=== PATIENT | female | born 1970 ===

== ENCOUNTER → 2018-01-10 | Outpatient (CLI) | payer BC ==
[2018-01-13 03:30] LABS: MDA Not Detected (NOTDET); MDEA Not Detected (NOTDET); MDMA Not Detected (NOTDET); Methadone Metab. by GC/MS Not Detected (NOTDET)
== END ==
LOC: LAB SHORT 08:35 → LAB 08:35
PROVIDERS: Psychiatry & Neurology Psychiatry
DX: Z51.81 Encounter for therapeutic drug level monitoring (principal); Z79.899 Other long term (current) drug therapy
CPT/HCPCS: G0480

== ENCOUNTER 2019-12-14 18:32 | Inpatient (IN) | payer BC ==
[~2019-12-14] VITALS: Ht 177.8 cm; Wt 90.7 kg
[2019-12-14 20:12] LABS: BASOPHILS ABSOLUTE AUTO 0.01 K/mm3 (0.00-0.23); BASOPHILS PERCENT AUTO 0 % (0-2); EOSINOPHILS ABSOLUTE AUTO 0.01 K/mm3 (0.00-0.68); EOSINOPHILS PERCENT AUTO 0 % (0-6); Hematocrit 40.5 % (33.0-51.0); IMMATURE GRAN ABSOLUTE AUTO 0.02 K/mm3 (0.00-0.10); IMMATURE GRAN PERCENT AUTO 0 % (0-1); LYMPHOCYTES ABSOLUTE AUTO 0.84 K/mm3 (0.84-5.20); LYMPHOCYTES PERCENT AUTO 10 % (21-46); MONOCYTES ABSOLUTE AUTO 0.71 K/mm3 (0.16-1.47); MONOCYTES PERCENT AUTO 8 % (4-13); Mean Corpuscular HGB 29.3 pg (26.0-34.0); Mean Corpuscular HGB Conc 32.1 g/dL (31.5-36.5); Mean Corpuscular Volume 91 fL (80-100); Mean Platelet Volume 10.3 fL (9.1-12.4); NEUTROPHILS ABSOLUTE AUTO 7.06 K/mm3 (1.96-9.15); NEUTROPHILS PERCENT AUTO 82 % (41-73); Platelet Count 205 K/mm3 (150-400); RDW Coefficient Variation 12.4 % (11.7-14.2); RDW Standard Deviation 41.8 fL (35.1-46.3); Red Blood Cell Count 4.43 M/mm3 (3.80-5.20); White Blood Cell Count 8.65 K/mm3 (4.00-11.30)
[2019-12-14] MEDS ORDERED: CLIN300 PO (20:12)
[2019-12-14 20:30] LABS: Anion Gap 6 mmol/L (6-16); Blood Urea Nitrogen 9 mg/dL (8-24); Bun/Creatinine Ratio 10.5 (12.0-20.0); CO2, Blood 27 mmol/L (21-32); Calcium, Blood 8.9 mg/dL (8.5-10.1); Chloride, Blood 101 mmol/L (98-108); Creatinine, Blood 0.86 mg/dL (0.40-1.00); Glomerular Filtration Rate >60 (60-); Glucose, Blood 100 mg/dL (70-99); Potassium, Blood 3.8 mmol/L (3.5-5.5); Sodium, Blood 134 mmol/L (136-145)
--- NOTE | 2019-12-15 04:25 | NUR ---
SHIFT SUMMARY PT ARRIVED TO ROOM JUST BEFORE MIDNIGHT. PT IS A/O X4 AND IND. IN ROOM. FLUIDS AND ABX GIVEN PER ORDERS. PAIN MANAGED WITH TORADOL PER ORDERS. PT HAS BEEN RESTING QUIETLY. NPO PER ORDERS. ICE PACK PROVIDED FOR COMFORT. ASSISTED WITH ADL'S PRN.
[2019-12-15 05:18] LABS: Hematocrit 40.4 % (33.0-51.0); Mean Corpuscular HGB 28.9 pg (26.0-34.0); Mean Corpuscular HGB Conc 32.2 g/dL (31.5-36.5); Mean Corpuscular Volume 90 fL (80-100); Mean Platelet Volume 11.1 fL (9.1-12.4); Platelet Count 205 K/mm3 (150-400); RDW Coefficient Variation 12.4 % (11.7-14.2); RDW Standard Deviation 41.1 fL (35.1-46.3); White Blood Cell Count 7.24 K/mm3 (4.00-11.30)
[2019-12-15 05:24] LABS: Alanine Aminotransfer (ALT/SGP 23 U/L (12-78); Albumin, Blood 3.6 g/dL (3.4-5.0); Albumin/Globulin Ratio 0.9 (0.8-1.8); Alk Phos 67 U/L (50-136); Anion Gap 8 mmol/L (6-16); Aspartate Aminotrans (AST/SGOT 16 U/L (12-37); Bilirubin, Total 0.5 mg/dL (0.1-1.0); Blood Urea Nitrogen 10 mg/dL (8-24); Bun/Creatinine Ratio 13.1 (12.0-20.0); CO2, Blood 25 mmol/L (21-32); Calcium, Blood 9.3 mg/dL (8.5-10.1); Chloride, Blood 105 mmol/L (98-108); Creatinine, Blood 0.76 mg/dL (0.40-1.00); Globulin, Blood 4.1 g/dL (2.2-4.0); Glomerular Filtration Rate >60 (60-); Glucose, Blood 137 mg/dL (70-99); Potassium, Blood 3.9 mmol/L (3.5-5.5); Sodium, Blood 138 mmol/L (136-145); Total Protein, Blood 7.7 g/dL (6.4-8.2)
[2019-12-15] MEDS ORDERED: ACET325 PO (13:02)
[2019-12-15] MEDS ORDERED: CLIN300 PO (13:05)
[2019-12-15] MEDS ORDERED: IBUP800 PO (13:06)
[2019-12-15] MEDS ORDERED: Culturelle1 CAP PO (13:06)
[2019-12-15] MEDS ORDERED: ONDA4ODT MM (13:07)
[2019-12-15] MEDS ORDERED: HYDR1TAB94 PO (13:07)
--- NOTE | 2019-12-15 13:58 | NUR ---
DISCHARGE SUMMARY PT DISCHARGED TO HOME. PT EDUCATED ON HOME MEDICATIONS AND INSTRUCTED TO FOLLOW UP WITH PCP AND DENTIST. PT AGREES. DISCHARGE INSTRUCTIONS DISCUSSED, ALL QUESTIONS ANSWERED. IV DC'D AND BELIONGINGS RETURNED.
== END 2019-12-15 13:50 | disposition home or self-care (01) | DRG 603 ==
LOC: ER 18:32 → MEDS 23:26
PROVIDERS: Emergency Medicine; ADMIT Internal Medicine
DX: L03.211 Cellulitis of face (principal); K04.7 Periapical abscess without sinus; Z88.0 Allergy status to penicillin
CPT/HCPCS: 36415; 70487; 80048; 80053; 85025; 85027; 96365-59; 96375-59; 99284-25; J1100; J1650; J1885; J2930; J7030; Q9967